=== PATIENT | male | born 1990 | race African-American/Black ===

== ENCOUNTER 2018-04-12 10:27 | Emergency (ER) | payer SELFPAY ==
[~2018-04-12] VITALS: Ht 170.2 cm; Wt 54.4 kg
== END 2018-04-12 11:21 | disposition home or self-care (01) ==
LOC: ER 10:27
DX: R50.9 Fever, unspecified (principal); J02.0 Streptococcal pharyngitis; I10 Essential (primary) hypertension
CPT/HCPCS: 99281